=== PATIENT | female | born 1955 | race Caucasian/White ===

== ENCOUNTER 2017-02-24 14:11 | Emergency (ER) | payer OTHER ==
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
[2017-02-24] MEDS ORDERED: KETOROLAC TROMETHAMINE INJ/PF 30 MG/1 ML SDV IV ONE (14:33)
[2017-02-24] MEDS ORDERED: KETOROLAC TROMETHAMINE 60 MG/2 ML SDV IM ONE (14:48)
[2017-02-24 15:17] VITALS: BP 136/95
== END 2017-02-24 15:34 | disposition home or self-care (01) ==
LOC: ER 14:11
DX: S29.012A Strain of muscle and tendon of back wall of thorax, initial encounter (principal); S16.1XXA Strain of muscle, fascia and tendon at neck level, initial encounter; V49.40XA Driver injured in collision with unspecified motor vehicles in traffic accident, initial encounter; M54.5 Low back pain; J45.909 Unspecified asthma, uncomplicated
CPT/HCPCS: 99283; 96372; J1885